=== PATIENT | female | born 1970 | race Caucasian/White ===

== ENCOUNTER 2017-04-19 05:16 | Inpatient (IN) | payer SELFPAY ==
[2017-04-19] MEDS ORDERED: ONDANSETRON HCL 4 MG/2 ML SOL IV ONE (05:45)
[2017-04-19] MEDS ORDERED: ONDANSETRON HCL 4 MG/2 ML SOL ONE (05:46)
[2017-04-19 05:51] LABS: HEMATOCRIT 36 % (35-47); MEAN CORPUSCULAR HGB CONC 34.3 gm/dl (32.0-36.0); MEAN CORPUSCULAR VOLUME 96 fL (81-99)
[2017-04-19] MEDS ORDERED: SODIUM CHLORIDE 0.9% 1000ML 1,000 ML IV ONE ×2 (05:54→07:23)
[2017-04-19 06:03] LABS: ALBUMIN 3.1 gm/dl (3.4-5.0); CALCIUM 7.9 mg/dl (8.5-10.1); POTASSIUM 3.9 mMol/L (3.5-5.1)
[2017-04-19 06:04] LABS: BASOPHILS % (MANUAL) 0 % (0-3); EOSINOPHILS % (MANUAL) 0 % (0-9); LYMPHOCYTES % (MANUAL) 3 % (10-50); NORMAL RBCS PRESENT
[2017-04-19] MEDS ORDERED: HYDROMORPHONE 1 MG/ML SYRINGE IV ONE (06:11)
[2017-04-19] MEDS ORDERED: HYDROMORPHONE 1 MG/ML SYRINGE ONE (06:13)
[2017-04-19 06:22] LABS: APPEARANCE,URINE Slightly Cloudy; BILIRUBIN,URINE 1+ (NEGATIVE); COLOR,URINE Amber; GLUCOSE, URINE (UA) NEGATIVE (NEGATIVE); KETONES,URINE TRACE (NEGATIVE); LEUKOCYTE ESTERASE ,URINE NEGATIVE (NEGATIVE); NITRATE,URINE POSITIVE (NEGATIVE); OCCULT BLOOD,URINE 1+ (NEG-TRACE); UROBILINOGEN,URINE 0.2 (0.2-1.0 EU)
[2017-04-19] MEDS ORDERED: SODIUM CHLORIDE 0.9% 50 ML 25 ML IV PRN (06:22)
[2017-04-19] MEDS ORDERED: PIPERACILLIN/TAZOBACT 3.375 GM 3.375 GM in SODIUM CHLORIDE 0.9% 100 ML 100 ML IV ONE (06:22)
[2017-04-19 06:36] LABS: ICTOTEST,URINE NEGATIVE (NEGATIVE); RBC,URINE 0-2 (0-3AV/HPF)
[2017-04-19] MEDS ORDERED: PROCHLORPERAZINE EDISYLATE 5 MG/ML SOL ONE (07:13)
[2017-04-19] MEDS ORDERED: PROCHLORPERAZINE EDISYLATE 5 MG/ML SOL IV ONE (07:13)
[2017-04-19] MEDS ORDERED: SODIUM CHLORIDE 0.9% 100 ML 100 ML IV ONE ×3 (07:34→20:01)
[2017-04-19] MEDS ORDERED: PIPERACILLIN/TAZOBACT 3.375 GM PDS IV ONE ×4 (07:34→20:01)
[2017-04-19] MEDS: SODIUM CHLORIDE 0.9% FLUSH 10 ML SOL IV PRN ×2 (08:10→15:40)
[2017-04-19] MEDS: PIPERACILLIN/TAZOBACT 3.375 GM 3 GM in SODIUM CHLORIDE 0.9% 100 ML 100 ML IV SCH ×2 (08:10→13:25)
[2017-04-19] MEDS ORDERED: KETOROLAC TROMETHAMINE 30 MG/ML SOL IV ONE (08:13)
[2017-04-19] MEDS ORDERED: KETOROLAC TROMETHAMINE 30 MG/ML SOL ONE (08:14)
[2017-04-19] MEDS ORDERED: PATIENT EDUCATION 1 MISC PRN (09:22)
[2017-04-19] MEDS: HYDROMORPHONE 1 MG/ML SYRINGE IV PRN ×4 (11:22→23:40)
[2017-04-19] MEDS: NICOTINE 7 MG PATCH TD SCH (11:48)
[2017-04-19] MEDS: PIPERACILLIN/TAZOBACT 3.375 GM 3.375 GM in SODIUM CHLORIDE 0.9% 100 ML 100 ML IV SCH ×2 (14:27→20:11)
[2017-04-19] MEDS: SODIUM CHLORIDE 0.9% 1000ML 1,000 ML IV SCH ×2 (16:04→23:26)
[2017-04-19] MEDS: KETOROLAC TROMETHAMINE 30 MG/ML SOL IV PRN (21:40)
[2017-04-20] MEDS ORDERED: PIPERACILLIN/TAZOBACT 3.375 GM PDS IV ONE ×4 (02:06→20:25)
[2017-04-20] MEDS ORDERED: SODIUM CHLORIDE 0.9% 100 ML 100 ML IV ONE ×4 (02:06→20:25)
[2017-04-20] MEDS: PIPERACILLIN/TAZOBACT 3.375 GM 3.375 GM in SODIUM CHLORIDE 0.9% 100 ML 100 ML IV SCH ×4 (02:21→20:34)
[2017-04-20] MEDS: KETOROLAC TROMETHAMINE 30 MG/ML SOL IV PRN ×2 (02:21→20:34)
[2017-04-20] MEDS: ONDANSETRON HCL 4 MG/2 ML SOL IV PRN ×3 (02:26→15:38)
[2017-04-20] MEDS: HYDROMORPHONE 1 MG/ML SYRINGE IV PRN ×3 (04:57→11:16)
[2017-04-20] MEDS: SODIUM CHLORIDE 0.9% 1000ML 1,000 ML IV SCH (06:42)
[2017-04-20 07:44] LABS: BASOPHILS % (AUTO) 0 % (0-3); EOSINOPHILS % (AUTO) 0 % (0-9); HEMATOCRIT 31 % (35-47); MEAN CORPUSCULAR HGB CONC 32.8 gm/dl (32.0-36.0); MEAN CORPUSCULAR VOLUME 98 fL (81-99); MONOCYTES % (AUTO) 2.4 % (0-12); NEUTROPHILS % (AUTO) 92.4 % (37-80)
[2017-04-20 07:54] LABS: CALCIUM 7.5 mg/dl (8.5-10.1); POTASSIUM 3.4 mMol/L (3.5-5.1)
[2017-04-20] MEDS: NICOTINE 7 MG PATCH TD SCH (09:56)
[2017-04-20] MEDS: SODIUM CHLORIDE/KCL 20MEQ 1,000 ML IV SCH ×2 (14:49→17:52)
[2017-04-20] MEDS: HYDROMORPHONE HCL 2 MG/ML SOL IV PRN ×2 (15:38→21:31)
[2017-04-20] MEDS ORDERED: ACETAMINOPHEN 500 MG 500 MG TAB PO ONE (16:23)
[2017-04-20] MEDS ORDERED: PHARMACOKINETICS 1 MISC PRN (16:24)
[2017-04-20] MEDS ORDERED: VANCOMYCIN HCL 500 MG PDS 1,000 MG in SODIUM CHLORIDE 0.9% 250 ML 250 ML IV ONE (16:28)
[2017-04-20] MEDS ORDERED: VANCOMYCIN HCL 500 MG PDS 1,500 MG in SODIUM CHLORIDE 0.9% 500 ML 500 ML IV ONE (18:00)
[2017-04-20] MEDS ORDERED: VANCOMYCIN HYDROCHLORIDE 500 MG PDS IV ONE (18:14)
[2017-04-20] MEDS ORDERED: SODIUM CHLORIDE 0.9% 500 ML 500 ML IV ONE (18:15)
[2017-04-21] MEDS ORDERED: SODIUM CHLORIDE 0.9% 100 ML 100 ML IV ONE ×3 (01:38→14:07)
[2017-04-21] MEDS ORDERED: PIPERACILLIN/TAZOBACT 3.375 GM PDS IV ONE ×3 (01:38→14:06)
[2017-04-21] MEDS: SODIUM CHLORIDE/KCL 20MEQ 1,000 ML IV SCH ×2 (01:44→13:32)
[2017-04-21] MEDS: ONDANSETRON HCL 4 MG/2 ML SOL IV PRN ×2 (01:44→09:44)
[2017-04-21] MEDS: PIPERACILLIN/TAZOBACT 3.375 GM 3.375 GM in SODIUM CHLORIDE 0.9% 100 ML 100 ML IV SCH ×3 (01:50→14:14)
[2017-04-21] MEDS: HYDROMORPHONE HCL 2 MG/ML SOL IV PRN ×2 (04:07→11:24)
[2017-04-21] MEDS ORDERED: VANCOMYCIN HYDROCHLORIDE 500 MG PDS IV ONE (06:00)
[2017-04-21] MEDS ORDERED: VANCOMYCIN HCL 500 MG PDS 1,250 MG in SODIUM CHLORIDE 0.9% 250 ML 250 ML IV SCH (06:00)
[2017-04-21] MEDS ORDERED: SODIUM CHLORIDE 0.9% 250 ML 250 ML IV ONE (06:00)
[2017-04-21 07:14] LABS: CALCIUM 7.4 mg/dl (8.5-10.1); POTASSIUM 3.4 mMol/L (3.5-5.1)
[2017-04-21 07:24] LABS: BASOPHILS % (AUTO) 0 % (0-3); EOSINOPHILS % (AUTO) 0 % (0-9); HEMATOCRIT 29 % (35-47); MEAN CORPUSCULAR VOLUME 96 fL (81-99); MONOCYTES % (AUTO) 4.2 % (0-12); NEUTROPHILS % (AUTO) 93.3 % (37-80)
[2017-04-21 08:19] VITALS: RESP 14; O2SAT 100
[2017-04-21] MEDS ORDERED: POTASSIUM CHLORIDE 10 MEQ TER PO SCH (09:00)
[2017-04-21] MEDS: KETOROLAC TROMETHAMINE 30 MG/ML SOL IV PRN (09:02)
[2017-04-21] MEDS: SODIUM CHLORIDE 0.9% FLUSH 10 ML SOL IV PRN ×6 (09:18→15:03)
[2017-04-21] MEDS: NICOTINE 7 MG PATCH TD SCH (09:46)
[2017-04-21] MEDS: METRONIDAZOLE 500 MG (PREMIX) 500 MG/100 ML SOL IV SCH ×2 (09:55→15:20)
[2017-04-21] MEDS ORDERED: HYDRALAZINE HYDROCHLORIDE 20 MG/ML SOL IV ONE (13:50)
[2017-04-21 13:51] VITALS: TEMP 97.7
[2017-04-21 13:57] VITALS: PULSE 85
[2017-04-21] MEDS ORDERED: LORAZEPAM 2 MG/ML 10ML MDV 2 MG/ML VIAL IV ONE (14:49)
[2017-04-21] MEDS ORDERED: LORAZEPAM 2 MG/ML SOL ONE (14:55)
[2017-04-21 15:50] VITALS: BP 167/93
== END 2017-04-21 15:15 | disposition short-term general hospital (02) | DRG 392 ==
LOC: ED 05:16 → UNDOADMIN 06:42 → ACUTE CARE 06:42
PROVIDERS: ADMIT Emergency Medicine; ATTEND Emergency Medicine
DX: K57.20 Diverticulitis of large intestine with perforation and abscess without bleeding (principal); N39.0 Urinary tract infection, site not specified
CPT/HCPCS: 36415; 74176; 74177; 80048; 80053; 81001; 82150; 84703; 85007; 85025; 85027; 87040; 94760; 96365; 96366; 96374; 96375; 99070; 99221; 99231; 99285; J0360; J0780; J1170; J1885; J2060; J2405; J2543; J3370; Q9967; A9270-GY; J3490

== ENCOUNTER 2017-04-26 19:23 | Emergency (ER) | payer SELFPAY ==
[2017-04-26 19:24] VITALS: O2SAT 100
[2017-04-26 19:55] VITALS: PULSE 92; RESP 16; TEMP 97.2
[2017-04-26 20:50] VITALS: BP 152/108
== END 2017-04-26 20:02 | disposition home or self-care (01) | DRG 920 ==
LOC: ED 19:23
DX: T85.9XXA Unspecified complication of internal prosthetic device, implant and graft, initial encounter (principal); K57.80 Diverticulitis of intestine, part unspecified, with perforation and abscess without bleeding
CPT/HCPCS: 99282

== ENCOUNTER 2017-04-29 16:55 | Emergency (ER) | payer SELFPAY ==
[2017-04-29] MEDS ORDERED: LORAZEPAM 2 MG/ML 10ML MDV 2 MG/ML VIAL IV ONE ×2 (17:37→18:55)
[2017-04-29 17:44] LABS: CALCIUM 8.6 mg/dl (8.5-10.1)
[2017-04-29 17:44] LABS: APPEARANCE,URINE Slightly Cloudy; BILIRUBIN,URINE NEGATIVE (NEGATIVE); COLOR,URINE Yellow; GLUCOSE, URINE (UA) NEGATIVE (NEGATIVE); KETONES,URINE NEGATIVE (NEGATIVE); LEUKOCYTE ESTERASE ,URINE TRACE (NEGATIVE); NITRATE,URINE NEGATIVE (NEGATIVE); OCCULT BLOOD,URINE TRACE INTACT (NEG-TRACE); PH,URINE 6.5; UROBILINOGEN,URINE 0.2 (0.2-1.0 EU)
[2017-04-29 17:47] LABS: BASOPHILS % (AUTO) 1 % (0-3); EOSINOPHILS % (AUTO) 4 % (0-9); HEMATOCRIT 32 % (35-47); MEAN CORPUSCULAR HGB CONC 32.5 gm/dl (32.0-36.0); MEAN CORPUSCULAR VOLUME 94 fL (81-99)
[2017-04-29 17:52] LABS: POTASSIUM 2.7 mMol/L (3.5-5.1)
[2017-04-29] MEDS ORDERED: LORAZEPAM 2 MG/ML SOL ONE ×2 (18:01→18:53)
[2017-04-29 18:03] LABS: RBC,URINE NEGATIVE (0-3AV/HPF)
[2017-04-29] MEDS ORDERED: POTASSIUM CHLORIDE 10 MEQ TER PO ONE ×3 (18:10→20:13)
[2017-04-29] MEDS ORDERED: POTASSIUM CHLORIDE 2 MEQ/ML SOL IV ONE (18:11)
[2017-04-29] MEDS: SODIUM CHLORIDE/KCL 20MEQ 1,000 ML IV SCH ×2 (18:40→19:16)
[2017-04-29] MEDS ORDERED: POTASSIUM CHLORIDE 10 MEQ TER ONE ×2 (19:00→19:56)
[2017-04-29] MEDS ORDERED: LISINOPRIL 20 MG TAB PO ONE (19:22)
[2017-04-29] MEDS ORDERED: LISINOPRIL 20 MG TAB ONE (19:25)
[2017-04-29 19:34] VITALS: O2SAT 100
[2017-04-29 20:15] VITALS: RESP 16
[2017-04-29 23:25] VITALS: BP 190/139; PULSE 84; TEMP 97.7
== END 2017-04-29 21:33 | disposition home or self-care (01) | DRG 305 ==
LOC: ED 16:55
DX: I10 Essential (primary) hypertension (principal); K57.92 Diverticulitis of intestine, part unspecified, without perforation or abscess without bleeding; B37.3 Candidiasis of vulva and vagina; E87.6 Hypokalemia
CPT/HCPCS: 36415; 74177; 80048; 81001; 85025; 93005; 96365; 96366; 96374; 99284; 99285; J2060; J3480; Q9967; A9270-GY

== ENCOUNTER 2017-11-11 08:32 | Inpatient (IN) | payer OTHER ==
[2017-11-11] MEDS ORDERED: ONDANSETRON HCL 4 MG/2 ML SOL IV ONE ×2 (08:45→10:08)
[2017-11-11] MEDS ORDERED: ONDANSETRON HCL 4 MG/2 ML SOL ONE (08:47)
[2017-11-11 09:01] LABS: HEMATOCRIT 34 % (35-47); MEAN CORPUSCULAR HEMOGLOBIN 30.7 pg (27.0-32.0); MEAN CORPUSCULAR HGB CONC 32.1 gm/dl (32.0-36.0); MEAN CORPUSCULAR VOLUME 96 fL (81-99)
[2017-11-11] MEDS ORDERED: LORAZEPAM 2 MG/ML 10ML MDV 2 MG/ML VIAL IV ONE (09:13)
[2017-11-11] MEDS ORDERED: LORAZEPAM 2 MG/ML SOL ONE (09:14)
[2017-11-11 09:15] LABS: ALBUMIN 3.5 gm/dl (3.4-5.0); BILIRUBIN,TOTAL 0.4 mg/dl (0.2-1.0); CALCIUM 8.6 mg/dl (8.5-10.1); CARBON DIOXIDE 26.3 mEq/L (21-32); CREATININE 0.69 mg/dl (0.60-1.00); POTASSIUM 3.9 mMol/L (3.5-5.1); TOTAL PROTEIN 7.3 gm/dl (6.4-8.2)
[2017-11-11 09:33] LABS: BAND NEUTROPHILS % (MANUAL) 10 %; NEUTROPHILS % (MANUAL) 43 % (37-80)
[2017-11-11 09:34] LABS: BASOPHILS % (MANUAL) 3 % (0-3); EOSINOPHILS % (MANUAL) 1 % (0-9); LYMPHOCYTES % (MANUAL) 39 % (10-50); MONOCYTES % (MANUAL) 4 % (0-12)
[2017-11-11 09:35] LABS: NORMAL RBCS PRESENT
[2017-11-11] MEDS ORDERED: MORPHINE SULFATE 10 MG/ML SOL IV PRN (10:06)
[2017-11-11] MEDS ORDERED: MORPHINE SULFATE 10 MG/ML SOL ONE (10:12)
[2017-11-11 11:05] LABS: APPEARANCE,URINE Clear; BILIRUBIN,URINE NEGATIVE (NEGATIVE); COLOR,URINE Light yellow; GLUCOSE, URINE (UA) NEGATIVE (NEGATIVE); KETONES,URINE NEGATIVE (NEGATIVE); LEUKOCYTE ESTERASE ,URINE NEGATIVE (NEGATIVE); NITRATE,URINE NEGATIVE (NEGATIVE); OCCULT BLOOD,URINE NEGATIVE (NEG-TRACE); UROBILINOGEN,URINE 0.2 (0.2-1.0 EU)
[2017-11-11 11:26] LABS: BACTERIA TRACE (< 1+); CRYSTALS NEGATIVE (0-3 AVE/HPF); EPITHELIAL CELLS 0-1 (SQUAMOUS); RBC,URINE 0-1 (0-3AV/HPF); WBC,URINE 0-1 (0-5AV/HPF)
[2017-11-11] MEDS ORDERED: LIDOCAINE HCL 2% (VISCOUS) 20 ML SOL MT ONE (11:47)
[2017-11-11] MEDS ORDERED: LIDOCAINE HCL 2% (VISCOUS) 20 ML SOL ONE (11:48)
[2017-11-11] MEDS ORDERED: HYDROMORPHONE 1 MG/ML SYRINGE IV PRN (12:34)
[2017-11-11] MEDS ORDERED: PIPERACILLIN/TAZOBACT 3.375 GM PDS IV ONE ×2 (12:39→19:19)
[2017-11-11] MEDS: SODIUM CHLORIDE 0.9% FLUSH 10 ML SOL IV PRN ×4 (12:50→20:00)
[2017-11-11] MEDS: PIPERACILLIN/TAZOBACT 3.375 GM 3.375 GM in SODIUM CHLORIDE 0.9% 100 ML 100 ML IV SCH ×2 (13:00→19:22)
[2017-11-11] MEDS ORDERED: NICOTINE 7 MG PATCH TD SCH (15:00)
[2017-11-11] MEDS: HYDROMORPHONE 1 MG/ML SYRINGE IV PRN ×2 (17:15→21:49)
[2017-11-11] MEDS ORDERED: LORATADINE 10 MG TAB PO SCH (18:45)
[2017-11-11] MEDS ORDERED: ONDANSETRON HCL 4 MG TAB PO PRN (18:52)
[2017-11-11] MEDS: AMLODIPINE 5 MG TAB PO SCH (19:05)
[2017-11-11] MEDS: PANTOPRAZOLE SODIUM 40 MG ECT PO SCH (19:05)
[2017-11-11] MEDS: CITALOPRAM 20 MG TAB PO SCH (19:05)
[2017-11-11] MEDS ORDERED: SODIUM CHLORIDE 0.9% 100 ML 100 ML IV ONE (19:19)
[2017-11-11] MEDS ORDERED: TRAZODONE HYDROCHLORIDE 50 MG TAB PO PRN (21:00)
[2017-11-11] MEDS: SODIUM CHLORIDE 0.9% 1000ML 1,000 ML IV SCH (21:45)
[2017-11-11] MEDS: ONDANSETRON HCL 4 MG/2 ML SOL IV PRN (23:19)
[2017-11-12] MEDS: PIPERACILLIN/TAZOBACT 3.375 GM 3.375 GM in SODIUM CHLORIDE 0.9% 100 ML 100 ML IV SCH ×2 (01:30→07:11)
[2017-11-12] MEDS ORDERED: PIPERACILLIN/TAZOBACT 3.375 GM PDS IV ONE ×2 (04:22→06:23)
[2017-11-12] MEDS ORDERED: SODIUM CHLORIDE 0.9% 100 ML 100 ML IV ONE ×2 (04:22→06:23)
[2017-11-12] MEDS: ONDANSETRON HCL 4 MG/2 ML SOL IV PRN (05:05)
[2017-11-12] MEDS: HYDROMORPHONE 1 MG/ML SYRINGE IV PRN ×2 (05:05→09:19)
[2017-11-12] MEDS: SODIUM CHLORIDE 0.9% 1000ML 1,000 ML IV SCH (05:05)
[2017-11-12] MEDS: SODIUM CHLORIDE 0.9% FLUSH 10 ML SOL IV PRN ×2 (05:16→10:22)
[2017-11-12 08:15] VITALS: BP 141/90; PULSE 67; RESP 16; TEMP 97.5
[2017-11-12] MEDS: CITALOPRAM 20 MG TAB PO SCH (08:54)
[2017-11-12] MEDS: PANTOPRAZOLE SODIUM 40 MG ECT PO SCH (08:55)
[2017-11-12] MEDS: AMLODIPINE 5 MG TAB PO SCH (08:55)
[2017-11-12] MEDS ORDERED: DEXAMETHASONE 4 MG PO SCH (09:00)
[2017-11-12] MEDS ORDERED: HEPARIN 500 Unit PRE-FILL 100 U/ML SOL IV PRN (09:46)
[2017-11-12 10:49] VITALS: O2SAT 97
== END 2017-11-12 10:38 | disposition home or self-care (01) | DRG 392 ==
LOC: ED 08:32 → UNDOADMIN 11:42 → ACUTE CARE 11:42
PROVIDERS: ADMIT Family Medicine; ATTEND Family Medicine
DX: K57.32 Diverticulitis of large intestine without perforation or abscess without bleeding (principal); I10 Essential (primary) hypertension; C50.912 Malignant neoplasm of unspecified site of left female breast
CPT/HCPCS: 74177; 80053; 81001; 85007; 85027; 94762; 96365; 96374; 96375; 99070; 99283; 99285; J1644; J2060; J2270; J2405; J2543; Q9967; A9270-GY; J1170

== ENCOUNTER 2018-02-23 07:53 | Inpatient (IN) | payer OTHER ==
[2018-02-23] MEDS ORDERED: SODIUM CHLORIDE 0.9% 1000ML 1,000 ML IV ONE ×2 (08:30→11:23)
[2018-02-23] MEDS ORDERED: HYDROMORPHONE HCL 2 MG/ML SOL IV ONE (08:30)
[2018-02-23 09:08] LABS: BASOPHILS % (AUTO) 1 % (0-3); EOSINOPHILS % (AUTO) 2 % (0-9); HEMATOCRIT 36 % (35-47); HEMOGLOBIN 11.7 gm/dl (12.0-15.5); LYMPHOCYTES % (AUTO) 9.2 % (10-50); MEAN CORPUSCULAR HEMOGLOBIN 33.1 pg (27.0-32.0); MEAN CORPUSCULAR HGB CONC 32.2 gm/dl (32.0-36.0); MONOCYTES % (AUTO) 4.9 % (0-12); NEUTROPHILS % (AUTO) 83.4 % (37-80)
[2018-02-23 09:10] LABS: MEAN CORPUSCULAR VOLUME 103 fL (81-99)
[2018-02-23 09:22] LABS: ALBUMIN 3.1 gm/dl (3.4-5.0); BILIRUBIN,TOTAL 0.6 mg/dl (0.2-1.0); CALCIUM 8.3 mg/dl (8.5-10.1); CARBON DIOXIDE 27.2 mEq/L (21-32); CREATININE 0.6 mg/dl (0.60-1.00); POTASSIUM 3.8 mMol/L (3.5-5.1); TOTAL PROTEIN 7.1 gm/dl (6.4-8.2)
[2018-02-23] MEDS ORDERED: HYDROMORPHONE 1 MG/ML SYRINGE ONE ×2 (09:37→11:54)
[2018-02-23] MEDS ORDERED: HYDROMORPHONE 1 MG/ML SYRINGE IV ONE ×2 (09:38→11:52)
[2018-02-23] MEDS ORDERED: PIPERACILLIN/TAZOBACT 3.375 GM 3.375 GM in SODIUM CHLORIDE 0.9% 100 ML 100 ML IV ONE (11:22)
[2018-02-23] MEDS ORDERED: PIPERACILLIN/TAZOBACT 3.375 GM PDS IV ONE ×3 (11:35→23:23)
[2018-02-23] MEDS ORDERED: PROCHLORPERAZINE MALEATE 5 MG TAB PO PRN (13:09)
[2018-02-23] MEDS ORDERED: TRAZODONE HYDROCHLORIDE 50 MG TAB PO PRN (13:09)
[2018-02-23] MEDS ORDERED: ACETAMINOPHEN 325 MG PO PRN (13:18)
[2018-02-23] MEDS ORDERED: IBUPROFEN 600 MG TAB PO PRN (14:21)
[2018-02-23] MEDS ORDERED: LORAZEPAM 0.5 MG TAB PO PRN (14:21)
[2018-02-23] MEDS: NICOTINE 7 MG PATCH TD SCH (14:36)
[2018-02-23] MEDS: HYDROMORPHONE 1 MG/ML SYRINGE IV PRN ×2 (14:36→20:39)
[2018-02-23] MEDS: PANTOPRAZOLE SODIUM 40 MG ECT PO SCH (14:37)
[2018-02-23] MEDS: CITALOPRAM 20 MG TAB PO SCH (14:37)
[2018-02-23] MEDS: AMLODIPINE 5 MG TAB PO SCH (14:37)
[2018-02-23] MEDS: ENOXAPARIN 40 MG SOL SC SCH (15:25)
[2018-02-23] MEDS: METRONIDAZOLE 250 MG TAB PO SCH ×2 (17:00→20:39)
[2018-02-23] MEDS ORDERED: SODIUM CHLORIDE 0.9% 100 ML 100 ML IV ONE ×2 (17:03→23:24)
[2018-02-23] MEDS: PIPERACILLIN/TAZOBACT 3.375 GM 3.375 GM in SODIUM CHLORIDE 0.9% 100 ML 100 ML IV SCH ×2 (17:08→23:37)
[2018-02-23] MEDS: APAP/HYDROCODONE 1 EACH TABLET PO PRN (17:18)
[2018-02-23 19:40] VITALS: RESP 16
[2018-02-23] MEDS: SODIUM CHLORIDE 0.9% 1000ML 1,000 ML IV SCH (20:33)
[2018-02-23] MEDS: ONDANSETRON HCL 4 MG/2 ML SOL IV PRN (20:44)
[2018-02-24] MEDS: SODIUM CHLORIDE 0.9% 1000ML 1,000 ML IV SCH ×2 (01:43→15:47)
[2018-02-24] MEDS: APAP/HYDROCODONE 1 EACH TABLET PO PRN ×4 (01:50→19:32)
[2018-02-24] MEDS: HYDROMORPHONE 1 MG/ML SYRINGE IV PRN ×4 (01:56→22:08)
[2018-02-24] MEDS ORDERED: SODIUM CHLORIDE 0.9% 100 ML 100 ML IV ONE ×4 (04:47→22:20)
[2018-02-24] MEDS ORDERED: PIPERACILLIN/TAZOBACT 3.375 GM PDS IV ONE ×4 (04:47→22:20)
[2018-02-24] MEDS: PIPERACILLIN/TAZOBACT 3.375 GM 3.375 GM in SODIUM CHLORIDE 0.9% 100 ML 100 ML IV SCH ×4 (05:21→22:31)
[2018-02-24 07:17] LABS: BASOPHILS % (AUTO) 2 % (0-3); EOSINOPHILS % (AUTO) 4 % (0-9); HEMATOCRIT 32 % (35-47); HEMOGLOBIN 10.4 gm/dl (12.0-15.5); LYMPHOCYTES % (AUTO) 18.9 % (10-50); MEAN CORPUSCULAR HGB CONC 32.4 gm/dl (32.0-36.0); MONOCYTES % (AUTO) 6.7 % (0-12); NEUTROPHILS % (AUTO) 68.2 % (37-80)
[2018-02-24 07:22] LABS: CARBON DIOXIDE 27.9 mEq/L (21-32); CREATININE 0.69 mg/dl (0.60-1.00); POTASSIUM 3.7 mMol/L (3.5-5.1)
[2018-02-24 07:23] LABS: MEAN CORPUSCULAR VOLUME 102 fL (81-99)
[2018-02-24] MEDS: AMLODIPINE 5 MG TAB PO SCH (08:02)
[2018-02-24] MEDS: METRONIDAZOLE 250 MG TAB PO SCH ×4 (08:02→22:07)
[2018-02-24] MEDS: CITALOPRAM 20 MG TAB PO SCH (08:02)
[2018-02-24] MEDS: PANTOPRAZOLE SODIUM 40 MG ECT PO SCH (08:03)
[2018-02-24] MEDS: ENOXAPARIN 40 MG SOL SC SCH (08:05)
[2018-02-24] MEDS: NICOTINE 7 MG PATCH TD SCH (15:15)
[2018-02-24] MEDS: ONDANSETRON HCL 4 MG/2 ML SOL IV PRN (15:42)
[2018-02-25] MEDS: APAP/HYDROCODONE 1 EACH TABLET PO PRN ×2 (02:24→08:10)
[2018-02-25] MEDS ORDERED: SODIUM CHLORIDE 0.9% 100 ML 100 ML IV ONE (04:20)
[2018-02-25] MEDS ORDERED: PIPERACILLIN/TAZOBACT 3.375 GM PDS IV ONE (04:20)
[2018-02-25] MEDS: PIPERACILLIN/TAZOBACT 3.375 GM 3.375 GM in SODIUM CHLORIDE 0.9% 100 ML 100 ML IV SCH ×2 (04:43→11:40)
[2018-02-25] MEDS: SODIUM CHLORIDE 0.9% 1000ML 1,000 ML IV SCH (04:44)
[2018-02-25] MEDS ORDERED: HEPARIN 500 Unit PRE-FILL 100 U/ML SOL IV PRN (09:38)
[2018-02-25] MEDS: METRONIDAZOLE 250 MG TAB PO SCH (09:41)
[2018-02-25] MEDS: CITALOPRAM 20 MG TAB PO SCH (09:41)
[2018-02-25] MEDS: PANTOPRAZOLE SODIUM 40 MG ECT PO SCH (09:42)
[2018-02-25] MEDS: AMLODIPINE 5 MG TAB PO SCH (09:42)
[2018-02-25] MEDS: ENOXAPARIN 40 MG SOL SC SCH (09:42)
[2018-02-25 11:36] VITALS: BP 129/76; PULSE 71; TEMP 98.7; O2SAT 99
[2018-02-25] MEDS ORDERED: VALACYCLOVIR HYDROCHLORIDE 1 GM TAB PO SCH (14:00)
== END 2018-02-25 11:50 | disposition home or self-care (01) | DRG 392 ==
LOC: ED 07:53 → UNDOADMIN 11:47 → ACUTE CARE 11:47
PROVIDERS: ADMIT Family Medicine; ATTEND Family Medicine
DX: K57.92 Diverticulitis of intestine, part unspecified, without perforation or abscess without bleeding (principal); M54.5 Low back pain; K59.00 Constipation, unspecified; R10.30 Lower abdominal pain, unspecified; I10 Essential (primary) hypertension; K21.9 Gastro-esophageal reflux disease without esophagitis; Z72.0 Tobacco use; F32.9 Major depressive disorder, single episode, unspecified; C50.912 Malignant neoplasm of unspecified site of left female breast; Z17.0 Estrogen receptor positive status [ER+]
CPT/HCPCS: 36591; 74177; 80048; 80053; 82150; 85025; 96365; 96366; 96374; 96375; 99070; 99283; 99285; J1644; J1650; J2405; J2543; Q9967; A9270-GY; J1170

== ENCOUNTER → 2018-10-28 | Day surgery (SDC) | payer OTHER ==
[~2018-10-28] MED LIST: BUPIVACAINE/EPI 0.5% 10 ML SOL INFIL ONE; FENTANYL 100MCG/2ML SOL ONE; LIDOCAINE HCL 1% MPF 30 SOL ONE; MIDAZOLAM 2 MG/2 ML SOL ONE; PROPOFOL 500 MG/50 ML EMU IV ONE
[2018-10-28 08:14] VITALS: TEMP 98
[2018-10-28 08:25] VITALS: BP 127/87; PULSE 65; RESP 20; O2SAT 99
== END | disposition home or self-care (01) | DRG 599 ==
LOC: SURG 08:43
PROVIDERS: ATTEND Surgery
DX: C50.919 Malignant neoplasm of unspecified site of unspecified female breast (principal)
CPT/HCPCS: G0168; J2250; J3010; J2001; J2704